=== PATIENT | female | born 1960 | race Caucasian/White ===

== ENCOUNTER 2018-01-14 11:14 | Outpatient (REF) | payer MEDICARE, SELFPAY ==
[2018-01-14 13:38] LABS: Cholesterol 192 mg/dL (50-200); HDL Cholesterol 51 mg/dL (40-60); LDL CHOLESTEROL 120 mg/dL (<100); Triglyceride 159 mg/dL (30-150)
[2018-01-17 14:45] LABS: Hepatitis C Ab w Rflx HCV PCR Negative (NEGAT)
== END 2018-01-14 11:34 ==
LOC: NCHCN 11:14
PROVIDERS: PCP Internal Medicine; Visit Provider Internal Medicine
DX: E78.89 Other lipoprotein metabolism disorders (principal); Z11.59 Encounter for screening for other viral diseases
CPT/HCPCS: 80061; 83721; 86803

== ENCOUNTER 2018-04-08 01:34 | Outpatient (CLI) | payer MEDICARE, SELFPAY ==
[2018-04-08 08:07] LABS: CREATININE 1.05 mg/dL (0.55-1.02); Estimated GFR 53.64 (mL/min/1.73m2)
[2018-04-08] MEDS: Gadoterate meglumine 20 ML VIAL 12 ML IVP (08:35)
--- NOTE | 2018-04-08 08:55 | DI.MRI_ITS ---
SYMPTOMS/DIAGNOSIS: PAIN IN C-SPINE FOR LESS THAN 3 MONTHS, M54.2, H/O CERVICAL LAMINECTOMY MRI OF THE CERVICAL SPINE: Pre and post contrast examination was performed. Comparison is 2008. There is normal signal in the brainstem. No evidence of tonsillar ectopia is present. There are postsurgical changes of a laminectomy at C4-C5. At C7-T1, there is no focal disc herniation, central spinal canal or neural foraminal stenosis. At C6-C7, there is degenerative disc disease. There are hypertrophic changes of the uncovertebral joints on the left, causing moderately severe left neural foraminal stenosis. There is mild narrowing of the central spinal canal. No right neural foraminal stenosis is seen. At C5-C6, there is a small central disc herniation, which effaces the anterior subarachnoid space. There is no significant central spinal canal stenosis seen. Hypertrophic changes are seen at the uncovertebral joints, left greater than right. There is mild left neural foraminal stenosis. No significant right neural foraminal stenosis. At C4-C5, there is prominence of the osteophyte-disc complex. There are degenerative changes of the facets and uncovertebral joints, causing moderate bilateral neural foraminal stenosis. No significant central spinal canal stenosis is seen. At C3-C4, there is no significant central spinal canal stenosis. There are mild hypertrophic changes of the uncovertebral joints, left greater than right, resulting in mild left neural foraminal stenosis. At C2-C3, there is prominence of the uncovertebral joints on the left, causing mild neural foraminal narrowing. No central spinal canal stenosis or right neural foraminal stenosis is seen. Following contrast administration, no abnormal enhancement is seen. IMPRESSION: 1. Postsurgical changes of laminectomies at C4-C5. 2. Multilevel degenerative changes in the cervical spine resulting in multilevel central and neural foraminal stenosis, as described above. 3. Central disc herniation at C5-C6 but no significant central spinal canal stenosis results. 4. Multilevel neural foraminal stenosis as described above.
== END 2018-04-08 01:54 ==
PROVIDERS: PCP Internal Medicine; Visit Provider Internal Medicine
DX: M54.2 Cervicalgia (principal); M50.20 Other cervical disc displacement, unspecified cervical region; M48.02 Spinal stenosis, cervical region; Z98.890 Other specified postprocedural states; M50.323 Other cervical disc degeneration at C6-C7 level
CPT/HCPCS: 36415; 72156; 82565

== ENCOUNTER 2019-01-17 14:55 | Outpatient (REF) | payer MEDICARE, SELFPAY ==
[2019-01-17 21:32] LABS: Anion Gap 9.3 mmol/L (3-11); BUN 16 mg/dL (7-18); CO2 27.7 mmol/L (21.0-32.0); CREATININE 0.93 mg/dL (0.55-1.02); Calcium 9.4 mg/dL (8.5-10.1); Chloride 105 mmol/L (98-107); Glucose 104 mg/dL (70-100); Potassium 4.4 mmol/L (3.5-5.1); Sodium 142 mmol/L (136-145)
== END 2019-01-17 15:15 ==
LOC: NCHCN 14:55
PROVIDERS: PCP Internal Medicine; Visit Provider Internal Medicine
DX: Z86.79 Personal history of other diseases of the circulatory system (principal); Z12.11 Encounter for screening for malignant neoplasm of colon; R69 Illness, unspecified
CPT/HCPCS: 80048

== ENCOUNTER 2020-12-03 12:02 | Outpatient (REF) | payer MEDICARE, SELFPAY ==
[2020-12-03 13:56] LABS: HCT 44.1 % (36.0-46.0); HGB 14.3 g/dL (11.2-15.7); MCH 30.6 pg (27.0-33.0); MCHC 32.4 % (32.0-36.0); MCV 94.2 fL (80-95); Platelet Count 291 10^3/uL (130-400); RBC 4.68 10^6/uL (3.93-5.22); RDW 12.2 % (11.7-14.6); RDW-SD 42.5 fL; WBC 6.78 10^3/uL (4.4-10.8)
[2020-12-03 14:31] LABS: Anion Gap 6.2 mmol/L (3-11); BUN 14 mg/dL (7-18); CO2 31.8 mmol/L (21.0-32.0); CREATININE 0.9 mg/dL (0.55-1.02); Calcium 9.7 mg/dL (8.5-10.1); Chloride 104 mmol/L (98-107); Glucose 109 mg/dL (74-106); Potassium 4.4 mmol/L (3.5-5.1); Sodium 142 mmol/L (136-145)
== END 2020-12-03 12:03 | disposition home or self-care (01) ==
LOC: NCHCN 12:02
PROVIDERS: PCP Internal Medicine; Visit Provider Family Medicine
DX: I10 Essential (primary) hypertension (principal)
CPT/HCPCS: 80048; 85027

== ENCOUNTER → 2021-12-11 00:54 | Outpatient (CLI) | payer MEDICARE, SELFPAY ==
--- NOTE | 2021-12-11 15:27 | DI.MAMMO_ITS ---
Exam(s) MAMMO SCREENING EXAM: MAMMO SCREENING CLINICAL HISTORY: SCREENING, Z12.39. TECHNIQUE: Bilateral full field digital CC and MLO mammographic images were obtained with 3D tomosyn thesis and utilizing computer aided detection (CAD). COMPARISON: Prior mammograms were reviewed, the most recent being 2016. FINDINGS: No new significant radiograph findings in left breast. In the right breast there appears to be slight nipple in drawing, more so than previous. No obvious spiculated masses. No malignant-appearing microcalcification groups. IMPRESSION: 1. No radiographic evidence of malignancy in left breast. 2. Increased nipple indrawing on the right side. No obvious mass. Recommend spot compression views and right breast ultrasound. BI-RADS Category 0 - Assessment Incomplete: Need additional imaging evaluation Breast Density - Category C - Heterogeneously dense Breast density Category C or D implies that the patient has dense breast tissue. Dense breast tissue can make it harder to find cancer on a mammogram. Dense breast tissue is also associated with an incr eased risk of breast cancer. This information about the result of the mammogram report was provided to the patient to raise their awareness. Use this report when you speak with the patient about their risks for breast cancer, which includes their family history. At that time, you may recommend additional screening tests (Ultrasoun d or MRI) as these tests may add significant information. A negative radiographic report should not delay biopsy if a dominant or clinically suspicious mass is present. Up to ten percent of cancers are not identified on mammography. A negative report may reinforce clinical impression. Adenosis and dense breasts may obscure an underlying neoplasm. False positive reports average 6 to 10%. Patient will receive a letter notifying them of these results.
== END ==
PROVIDERS: PCP Internal Medicine; Visit Provider Family Medicine
DX: Z12.31 Encounter for screening mammogram for malignant neoplasm of breast (principal); R92.8 Other abnormal and inconclusive findings on diagnostic imaging of breast
CPT/HCPCS: 77063; 77067

== ENCOUNTER → 2021-12-15 01:31 | Outpatient (CLI) | payer MEDICARE, SELFPAY ==
--- NOTE | 2021-12-15 14:17 | DI.MAMMO_ITS ---
Exam(s) MAMMO SCREEN CALL BACK UNI EXAM: MAMMO SCREEN CALL BACK UNI-RIGHT CLINICAL HISTORY: F/U MAMMO, NIPPLE INDRAWING, R92.8. TECHNIQUE: Unilateral spot mammographic images obtained with 3D tomosynthesisand utilizing computer aided detection (CAD). Both CC and MLO views performed. COMPARISON: Prior mammograms were reviewed. This additional imaging was performed due to findings described on the recent screening mammogram of 12/11/2021. FINDINGS: Additional mammographic views performed todayrender this area less concerning. IMPRESSION: No radiographic evidence of malignancy. Appropriate follow-up to keep this patient on her yearly mammogram schedule, with earlier imaging if a self detected breast change is noted. The patient was informed of these findings and recommendations prior to leaving the department today. BI-RADS Category 2 - Benign Findings Breast Density - Category B - Scattered areas of fibroglandular density Breast density Category C or D implies that the patient has dense breast tissue. Dense breast tissue can make it harder to find cancer on a mammogram. Dense breast tissue is also associated with an incr eased risk of breast cancer. This information about the result of the mammogram report was provided to the patient to raise their awareness. Use this report when you speak with the patient about their risks for breast cancer, which includes their family history. At that time, you may recommend additional screening tests (Ultrasoun d or MRI) as these tests may add significant information. A negative radiographic report should not delay biopsy if a dominant or clinically suspicious mass is present. Up to ten percent of cancers are not identified on mammography. A negative report may reinforce clinical impression. Adenosis and dense breasts may obscure an underlying neoplasm. False positive reports average 6 to 10%. Patient will receive a letter notifying them of these results.
== END ==
PROVIDERS: PCP Internal Medicine; Visit Provider Family Medicine
DX: R92.8 Other abnormal and inconclusive findings on diagnostic imaging of breast (principal); Z12.31 Encounter for screening mammogram for malignant neoplasm of breast
CPT/HCPCS: 77063; 77067

== ENCOUNTER 2021-12-18 10:54 | Outpatient (REF) | payer MEDICARE, SELFPAY ==
[2021-12-18 15:55] LABS: Anion Gap 8.5 mmol/L (3-11); BUN 21 mg/dL (7-18); CO2 30.5 mmol/L (21.0-32.0); Calcium 9.4 mg/dL (8.5-10.1); Chloride 104 mmol/L (98-107); Glucose 102 mg/dL (74-106); Potassium 4.5 mmol/L (3.5-5.1); Sodium 143 mmol/L (136-145)
== END 2021-12-18 10:55 | disposition home or self-care (01) ==
LOC: NCHCN 10:54
PROVIDERS: PCP Internal Medicine; Visit Provider Family Medicine
DX: I10 Essential (primary) hypertension (principal)
CPT/HCPCS: 80048

== ENCOUNTER 2022-01-14 12:06 | Outpatient (REF) | payer MEDICARE, SELFPAY ==
--- NOTE | 2022-01-14 10:53 | PAPFT_PTH ---
PATIENT: Louise Feng LOC: [facility]#:[id number] AGE/SX: 61/F ROOM: RE01/14/[address]: Philly Malone : 1960 BED: DIS: 01/14/2022 SPEC #: [id number] RECD: 01/14/22 17:38 STATUS: MARIO REKelly #: [id number] SUSIE: 01/14/22 10:[address]: Philly Malone DEPT: [facility] Cytology RECD BY: Ashley Cheung ENTERED: 01/14/22 17:39 SP TYPE: PAPFT OTHR DR: Judson Us Tissues: 1 - CX/ENDOCX FOR PAP SMEARS Procedures: PAP THIN PREP/UVM Screening HPV DNA PROBE Comments: [id number]
== END 2022-01-14 12:07 | disposition home or self-care (01) ==
LOC: NCHCN 12:06
PROVIDERS: PCP Internal Medicine; Visit Provider Nurse Practitioner Family
DX: Z11.51 Encounter for screening for human papillomavirus (HPV) (principal); Z01.419 Encounter for gynecological examination (general) (routine) without abnormal findings; Z12.4 Encounter for screening for malignant neoplasm of cervix
CPT/HCPCS: 88142; 87624

== ENCOUNTER 2024-11-23 21:10 | Outpatient (REF) | payer MEDICARE, SELFPAY ==
[2024-11-23 21:35] LABS: ALT 75 U/L (14-59); AST 39 U/L (15-37); Albumin 3.9 g/dL (3.4-5.0); Alkaline Phosphatase 108 U/L (46-116); Anion Gap 7.9 mmol/L (3-11); BUN 19 mg/dL (7-18); Bilirubin, Total 0.3 mg/dL (0.2-1.0); CO2 31.1 mmol/L (21.0-32.0); Calcium 9.1 mg/dL (8.5-10.1); Calculated LDL 115 mg/dL (<100); Chloride 104 mmol/L (98-107); Cholesterol 194 mg/dL (<200); Estimated GFR 81.21 (mL/min/1.73m2); Glucose 91 mg/dL (74-106); HDL Cholesterol 56 mg/dL (>or=50); Potassium 3.8 mmol/L (3.5-5.1); Sodium 143 mmol/L (136-145); Total Protein 7.0 g/dL (6.4-8.2); Triglyceride 116 mg/dL (<150)
== END 2024-11-23 21:11 | disposition home or self-care (01) ==
LOC: NCHCN 21:10
PROVIDERS: PCP Internal Medicine; Visit Provider Family Medicine
DX: Z13.220 Encounter for screening for lipoid disorders (principal); Z13.1 Encounter for screening for diabetes mellitus
CPT/HCPCS: 80053; 80061

== ENCOUNTER 2024-12-11 02:26 | Outpatient (CLI) | payer MEDICARE, SELFPAY ==
--- NOTE | 2024-12-11 | DI.MAMMO_ITS ---
Exam(s) MAMMO SCREENING EXAM: MAMMO SCREENING CLINICAL HISTORY: Screening, Z12.31 TECHNIQUE: Mammograms were interpreted according to the usual protocol including computer analysis with CAD system, tomosynthesis and C-view imaging. COMPARISON: 2016 and 2021 FINDINGS: The breasts are composed of scattered fibroglandular densities, Breast Density category B. No suspicious masses or suspicious microcalcifications are seen. No skin thickening or abnormal axillary lymph nodes are seen. There has been no significant change from prior exams. IMPRESSION: BI-RADS Category 1, Negative mammogram Yearly screening mammography is recommended. Breast Density - Category B - There are scattered areas of fibroglandular density. Breast density Category C or D implies that the patient has dense breast tissue. Dense breast tissue can make it harder to find cancer on a mammogram. Dense breast tissue is also associated with an increased risk of breast cancer. This information about the result of the mammogram report was provided to the patient to raise their awareness. Use this report when you speak with the patient about their risks for breast cancer, which includes their family history. At that time, you may recommend additional screening tests (Ultrasound or MRI) as these tests may add significant information. A negative radiographic report should not delay biopsy if a dominant or clinically suspicious mass is present. Up to ten percent of cancers are not identified on mammography. A negative report may reinforce clinical impression. Adenosis and dense breasts may obscure an underlying neoplasm. False positive reports average 6 to 10%. Patient will receive a letter notifying them of these results.
== END 2024-12-11 02:46 ==
PROVIDERS: PCP Family Medicine; Visit Provider Family Medicine
DX: Z12.31 Encounter for screening mammogram for malignant neoplasm of breast (principal); R92.323 Mammographic fibroglandular density, bilateral breasts
CPT/HCPCS: 77063; 77067

== ENCOUNTER 2025-01-17 19:47 | Outpatient (REF) | payer MEDICARE, SELFPAY ==
[2025-01-17 22:23] LABS: ALT 30 U/L (14-59); AST 30 U/L (15-37); Albumin 3.8 g/dL (3.4-5.0); Alkaline Phosphatase 92 U/L (46-116); Anion Gap 9.7 mmol/L (3-11); BUN 21 mg/dL (7-18); Bilirubin, Total 0.3 mg/dL (0.2-1.0); CO2 30.3 mmol/L (21.0-32.0); Calcium 9.1 mg/dL (8.5-10.1); Chloride 103 mmol/L (98-107); Estimated GFR 81.21 (mL/min/1.73m2); Glucose 97 mg/dL (74-106); Potassium 4.5 mmol/L (3.5-5.1); Sodium 143 mmol/L (136-145); Total Protein 7.0 g/dL (6.4-8.2)
[2025-01-18 18:53] LABS: Hepatitis A Antibody IgM Negative (Negative); Hepatitis C Ab w Rflx HCV PCR Negative (Negative)
== END 2025-01-17 19:48 | disposition home or self-care (01) ==
LOC: NCHCN 19:47
PROVIDERS: PCP Family Medicine; Visit Provider Family Medicine
DX: R74.01 Elevation of levels of liver transaminase levels (principal)
CPT/HCPCS: 80053; 86704; 86709; 86803; 87340